=== PATIENT | female | born 1985 | race Caucasian/White ===

== ENCOUNTER 2017-02-16 11:09 | Emergency (ER) | payer MEDICAID ==
[~2017-02-16 11:09] MED LIST: BACTRIM DS1 TAB PO; BENTYL20 MG PO; CLEOCIN HCL300 M1 PO; CLONAZEPAM1 M1 PO; COMPAZINE10 M PO; CYCLOBENZAPRINE5 M1 PO; DEPO MEDROL; DESYREL150 MG PO; DICLOFENAC SODI50 M1 PO; FLEXERIL10 MG PO; IBUPROFEN800 M1 PO; K-DUR20 ME1 PO; KLONOPIN1 MG PO; LAMICTAL200 MG PO; MACROBID 100 M100 MG PO; MOTRIN800 MG PO; NAPROXYN500 MG/TA1 PO; NEURONTIN100 M1 PO; NORCO 5-325 TA1 EACH PO; NORCO 5/325 TAB1 TAB PO; PERCOCET 5/3251 TAB PO; PRENATAL1 TAB; PROGESTERONE; PROVENTIL HFA6.7 G1 INH; RESTORIL15 MG PO; RHOGAM; RISPERDAL1 M1 PO; SEROQUEL XR400 M1 PO; SEROQUEL300 MG PO; SEROQUEL50 MG PO; SKELAXIN800 M3 PO; TRAMADOL HCL50 M2 PO; TRAZODONE HCL100 M1 PO; TRILEPTAL300 M1 PO; VISTARIL50 MG PO; WELLBUTRIN XL150 M1 PO; ZOFRAN4 MG PO; ZOLOFT100 MG PO; ZOLOFT50 MG PO; ZYRTEC1010 PO
[2017-02-16] MEDS ORDERED: IMITREX100 M2 PO (11:23)
[2017-02-16] MEDS ORDERED: NEURONTIN300 M1 PO (11:24)
[2017-02-16] MEDS ORDERED: CLARITIN10 M6 PO (11:25)
[2017-02-16] MEDS ORDERED: TOPAMAX50 M3 PO (11:26)
[2017-02-16] MEDS ORDERED: PRAZOSIN HCL2 M2 PO (11:26)
[2017-02-16] MEDS ORDERED: FLUTICASONE PRO16 G1 (11:27)
[2017-02-16 12:14] LABS: ANION GAP 11 mmol/L (0-20); BLOOD UREA NITROGEN 10 mg/dl (6-24); CALCIUM 9.1 mg/dl (8.5-10.5); CARBON DIOXIDE-VENOUS 23 mmol/L (22-32); CHLORIDE 114 mmol/l (96-110); CREATININE 0.91 mg/dl (0.50-1.10); GLUCOSE 111 mg/dL (70-110); POTASSIUM 3.1 mmol/L (3.7-5.1); SODIUM 145 mmol/L (135-145); eGFR VALUE FOR BLACK >90 mL/Min
== END 2017-02-16 12:52 ==
LOC: EDMED 11:09
PROVIDERS: Emergency Medicine
DX: G43.109 Migraine with aura, not intractable, without status migrainosus (principal); E87.6 Hypokalemia; F90.9 Attention-deficit hyperactivity disorder, unspecified type; F43.10 Post-traumatic stress disorder, unspecified; F31.9 Bipolar disorder, unspecified; J45.909 Unspecified asthma, uncomplicated; Z87.442 Personal history of urinary calculi; Z98.890 Other specified postprocedural states; F17.200 Nicotine dependence, unspecified, uncomplicated; Z79.3 Long term (current) use of hormonal contraceptives; Z79.51 Long term (current) use of inhaled steroids; Z79.899 Other long term (current) drug therapy
CPT/HCPCS: J1885